=== PATIENT | female | born 1960 | race Caucasian/White ===

== ENCOUNTER 2019-10-23 18:09 | Emergency (ER) | payer OTHER ==
[~2019-10-23] VITALS: Ht 165.1 cm; Wt 68.0 kg
[2019-10-23 18:48] LABS: ABSOLUTE EOSINOPHILS 0.1 thou/uL (0.0-0.7); ABSOLUTE LYMPHOCYTES 1.9 thou/uL (0.8-5.3); ABSOLUTE MONOCYTES 0.4 thou/uL (0.0-1.2); ABSOLUTE NEUTROPHILS 2.5 thou/uL (1.6-8.1); BASOPHILS 0.9 %; EOSINOPHILS 1.6 %; HEMATOCRIT 38.8 % (37.0-47.0); HEMOGLOBIN 13.4 gm/dL (12.0-15.0); LYMPHOCYTES 38.3 %; MCH 28.9 pg (26.0-34.0); MCHC 34.5 g/dL (28.0-37.0); MCV 83.7 fL (80.0-100.0); MONOCYTES 7.9 %; NUCLEATED RBCS 0 /100WBC; PLATELET COUNT* 211 thou/uL (150-400); POLYS 51.3 %; RBC 4.63 mil/uL (4.20-5.00); RDW-CV 13.2 % (10.5-14.5); WBC 4.9 thou/uL (4.0-11.0)
[2019-10-23 18:53] LABS: CALCIUM 8.2 mg/dL (8.5-10.1); POTASSIUM 3.5 mmol/L (3.5-5.1)
[2019-10-23 18:54] LABS: APTT 24.9 Seconds (25.0-31.3); INR 1.1
[2019-10-23 18:57] LABS: ALBUMIN 4.1 g/dL (3.4-5.0); TOTAL BILIRUBIN 0.7 mg/dL (<0.1-1.0); TOTAL PROTEIN 7.3 g/dL (6.4-8.2)
[2019-10-23] MEDS ORDERED: NORCO 5-325 TA1 EAC1 PO (20:56)
[2019-10-23 21:26] VITALS: BP 133/79
== END 2019-10-23 21:28 | disposition home or self-care (01) ==
LOC: M.ERS 18:09 → EDBD 18:09 → M.ERS 21:28
PROVIDERS: Family Medicine
DX: S42.441A Displaced fracture (avulsion) of medial epicondyle of right humerus, initial encounter for closed fracture (principal); W18.39XA Other fall on same level, initial encounter; Y93.89 Activity, other specified; Y92.89 Other specified places as the place of occurrence of the external cause; Y99.8 Other external cause status